=== PATIENT | male | born 1985 | race Caucasian/White ===

== ENCOUNTER → 2016-06-09 | Emergency (ER) | payer OTHER ==
[~2016-06-09] VITALS: Ht 180.3 cm; Wt 83.7 kg
[~2016-06-09] MED LIST: AMOX500C5 PO; CLIN-78 PO; CLINDAMYCIN 150 MG (CLEOCIN) CAP PO ONE; HYDR-3702 PO; NO HOME MEDS; PROP40TA5 PO
--- OUTSIDE RECORDS SUMMARY | 2016-06-09 13:35 | XMS REPORT | Continuity of Care Document ---
Author Author [facility] Organization [facility] Address Unknown Phone Unavailable Support Name Relationship Address Phone ANGELO CANO MD Caregiver [address] [place] [address] [place] Next Of Kin [address] [place] [address] Insurance Providers Payer Name Policy Number Subscriber Name Relationship Self Pay Abdoul Trevino 19 Self / Same As Patient Chief Complaint and Reason for Visit Chief Complaint Dental Complaint Reason for Visit Dental abscess Toothache Dental caries Problems Medical Problems Problem Onset Date Status Dental abscess Unknown Active Toothache Unknown Active Dental caries Unknown Active Medications Medication Dose Route Sig Days/Qty Instructions Order Date Discontinued Date Status [No Home Meds] 10/10/14 Active Acetaminophen/Hydrocodone Bitart 1-2 Tab ORAL EVERY 4HRS PRN PAIN 24 Qty 10/10/14 Active Amoxicillin 500 Mg ORAL THREE TIMES A DAY 30 Qty 10/10/14 Active Social History No social history. Hospital Discharge Instructions No hospital discharge instructions. Plan of Care Discharge Date 10/10/14 3:19pm Disposition 01 HOME OR SELF-CARE Condition at Discharge Stable Instructions/Education Provided Dental Abscess (ED) Dental Caries (ED) Prescriptions See Medications Section Additional Instructions/Education ED EVANS if any worse. Follow up with your doctor. Petty Narayan as directed. Some of your test results may not be complete prior to your leaving the Emergency Department. The Emergency Department is not authorized to give test results over the phone. Please contact the doctor's office listed in this packet of information for your final results. Follow up with your primary care physician or return to the Emergency Department for worsening or worrisome symptoms. * Emergency Department phone number: [phone], x [phone] MEDICAL RECORD If you need copies of your X-rays, call [phone]. If you need copies of your medical record, including lab results, a signed authorization for release of records will be required. A telephone call for release of Health Information is not allowed. BILLING Billing can sometimes be confusing and frustrating. To help avoid confusion in the future, please take a moment to acquaint yourself with the billing parties for services. SERVICE BILLING [facility] Physician Services [facility] X-rays [facility] Patients will receive bills for services from the appropriate provider. If you have any questions about your [facility] bill, our staff will be happy to assist you. Please call [phone], and ask for the billing department. THANK YOU for choosing [facility] as your emergency care provider! Functional Status No functional status results. Allergies, Adverse Reactions, Alerts Allergen Type Severity Reaction Status Last Updated No Known Drug Allergies Active 10/10/14 Immunizations No immunization records. Vital Signs Acute Vital Signs Vital Response Date/Time Temperature (Fahrenheit) 98.4 Pulse 89 bpm Respirations 18 Height 5 ft 11 in Weight 169 lb Body Mass Index 23.0 kg/m^2 Results No known relevant diagnostic tests, laboratory data and/or discharge summary. Procedures No known history of procedures. Encounters Encounter Location Date/Time Departed Emergency Room [facility] 10/10/14 2:48pm Recent Diagnosis
[2016-06-09 13:46] VITALS: BP 142/86
== END | disposition home or self-care (01) ==
LOC: EDUNIT# 13:27 → ED 13:30
DX: K04.7 Periapical abscess without sinus (principal)
CPT/HCPCS: 99282; 99283